=== PATIENT | female | born 1980 | race Caucasian/White ===

== ENCOUNTER 2021-01-11 11:25 | Outpatient (CLI) | payer OTHER, SELFPAY ==
--- NOTE | ~2021-01-11 | MMUS_ITS ---
EXAMINATION: MM diag nico implant BI w feliz, US breast BI limited HISTORY: Palpable lump in the upper outer quadrant of the left breast TECHNIQUE: Craniocaudal, mediolateral, and mediolateral oblique 3-D tomosynthesis images with implant displacement of the breasts were performed and synthetic 2-D images were generated. Craniocaudal, m ediolateral oblique, and mediolateral views of the breasts without implant displacement were obtained using full field digital mammography. CAD analysis was submitted and interpreted. High resolution [facility] bilateral breast ultrasound was performed. COMPARISON: None, baseline BREAST PARENCHYMAL COMPOSITION: The breasts are extremely dense, which lowers the sensitivity of mamm ography. FINDINGS: MAMMOGRAPHIC FINDINGS: Left breast: No mammographic correlate is identified for the reported palpable abnormality of the lef t breast. There are several obscured equal density masses in the upper outer quadrant of the left [place] ast. Right breast: There is a 12 mm oval, obscured, low density mass in the middle third of the inner [address] st at the 3:00 location 4 cm from the nipple on the implant displaced craniocaudal view. ULTRASOUND: Left breast: There are multiple simple cysts of the left breast, the largest of which measures 3.2 cm at the 12:00 location 2 cm from the nipple. There are simple cysts at the 10:00 location 5 cm from t he nipple measuring up to 1 cm in the area of palpable concern. Right breast: There is a 0.9 x 0.5 cm oval, circumscribed, parallel, complex cystic and solid mass wi th posterior acoustic enhancement and no internal vascularity at the 3:00 location in the right breas t IMPRESSION: 1. Multiple simple cysts of the left breast including cysts in the area of palpable concern. Probably benign right breast mass. 2. Recommend 6 month follow-up right diagnostic mammogram and ultrasound BI-RADS category 3, probably benign findings. Reviewed, dictated and finalized at location A. [employer] IMPRESSION: 1. Multiple simple cysts of the left breast including cysts in the area of palp able concern. Probably benign right breast mass. 2. Recommend 6 month follow-up right diagnostic mammogram and ultrasound BI-RADS category 3, probably benign findings.
== END 2021-01-11 11:26 | disposition home or self-care (01) ==
PROVIDERS: PCP Family Medicine; Visit Provider Obstetrics & Gynecology
DX: N63.20 Unspecified lump in the left breast, unspecified quadrant (principal); R92.8 Other abnormal and inconclusive findings on diagnostic imaging of breast
CPT/HCPCS: 76642; 77062; 77066; G0279

== ENCOUNTER → 2021-07-06 04:35 | Outpatient (CLI) | payer OTHER, SELFPAY ==
[2021-07-07 01:36] LABS: SARS-CoV-2 RNA PCR Negative
== END ==
PROVIDERS: PCP Family Medicine; Visit Provider Obstetrics & Gynecology
DX: Z01.812 Encounter for preprocedural laboratory examination (principal); Z20.822 Contact with and (suspected) exposure to COVID-19
CPT/HCPCS: C9803; U0003; U0005

== ENCOUNTER 2021-07-10 01:20 | Day surgery (SDC) | payer OTHER, SELFPAY ==
[2021-07-08 10:36] VITALS: BMI 25.0
--- NOTE | 2021-07-09 13:09 | WPDANESEPPF ---
Anes - Initial Pre Proc Eval Procedure: Operation Date: 07/10/21 07:30 Proposed Procedures p Hysteroscopy with Aleyda Endometrial Ablation - Sujatha Elizabeth MD Date/Time: 07/09/21 13:09 Surgeon: Sujatha Elizabeth MD Pre Op Diagnosis: menorrhagia Patient Data Age: 41 Gender: F Height: 1.68 m Weight: 70.35 kg Allergies Allergy/AdvReac Type Severity Reaction Status Date / Time ciprofloxacin [From Cipro] Allergy Unknown Nausea Verified 07/10/21 06:10 metronidazole [From Flagyl] Allergy Unknown Nausea Verified 07/10/21 06:10 phenobarbital Allergy Unknown Unknown Verified 07/10/21 06:10 Home Medications Medication Instructions Recorded Confirmed Type alprazolam 0.5 mg PO PRN PRN 07/08/21 07/10/21 History apple cider vinegar 300 mg PO DAILY 07/08/21 07/10/21 History ascorbic acid (vitamin C) [Vitamin 500 mg PO DAILY 07/08/21 07/10/21 History C] bupropion HCl 150 mg PO QAM 07/08/21 07/10/21 History cholecalciferol (vitamin D3) 125 mcg PO DAILY 07/08/21 07/10/21 History diltiazem HCl 360 mg PO HS 07/08/21 07/10/21 History lactobacillus combination no.4 3,000 mmu cells PO DAILY 07/08/21 07/10/21 History [Probiotic] losartan 50 mg PO BID 07/08/21 07/10/21 History magnesium 450 mg PO DAILY 07/08/21 07/10/21 History potassium chloride 10 meq PO DAILY 07/08/21 07/10/21 History vitamin B complex [B Complex] 1 cap PO DAILY 07/08/21 07/10/21 History zinc 50 mg PO DAILY 07/08/21 07/10/21 History Patient hx anesthesia problems: none Family hx anesthesia problems: none PMFSH Past Medical History Medical History (Updated 07/09/21 @ 13:10 by Roberto Carlos Loo DO) Anxiety Depression Hypertension Surgical History Surgical History (Updated 07/09/21 @ 13:10 by Roberto Carlos Loo DO) History of History of spinal fusion History of tonsillectomy Family History Family History (Updated 10/21/10 @ 12:06 by DOCTOR UNKNOWN) Other Diabetes mellitus Family history of lung cancer Family history of malignant neoplasm of male breast Hypertension Social History Social History Smoking status: Never smoker Alcohol intake: current Drinks per week: 1 Substance use type: marijuana Other substance usage details: PRN/PAIN Last use: 07/07/21 Living arrangements: with family Spiritual care concerns: No Anes - Eval Final PreProcedure Day of Procedure 07/09/21 13:09 Patient weight: normal Heart: regular rate and rhythm Lungs: clear to auscultation and normal air movement Airway: Mallampati scale class II Neurological: alert and oriented Last oral intake: >/= 8 hours ASA classification: II Emergent: no Anesthetic plan: proceed Anesthesia type and monitoring: general GIVS and standard monitoring Informed Consent: The patient's anesthetic plan and its attendant risks and benefits were discussed with the patient/family/POA. Questions were solicited and answers provided to the satisfaction of the patient/family/POA.
[2021-07-10 06:17] VITALS: BP 124/78; PULSE 97; RESP 18; TEMP 36.3; O2SAT 100
[2021-07-10] MEDS: LACTATED RINGERS 1,000 ML 30 ML IV CONT (06:25)
[2021-07-10] MEDS: ACETAMINOPHEN 500 MG TABLET 1000 MG PO (06:28)
--- NOTE | 2021-07-10 07:16 | WPDHPUPDATE1 ---
History and Physical Update Update Date/Time: 07/10/21 07:16 History and Physical has been reviewed, including an updated exam of the patient. There are NO changes in the patient's condition. Risks, benefits, and alternatives have been discussed and questions answered. Patient agrees to proceed with procedure.
--- NOTE | 2021-07-10 07:18 | WPDHPUPDATE1 ---
History and Physical Update Update Date/Time: 07/10/21 07:18 History and Physical has been reviewed, including an updated exam of the patient. There are NO changes in the patient's condition. Risks, benefits, and alternatives have been discussed and questions answered. Patient agrees to proceed with procedure.
[2021-07-10] MEDS: KETOROLAC 30 MG/ML VIAL (*BKC) IV PUSH (08:00)
[2021-07-10 08:07] VITALS: BP 108/54; PULSE 87; O2SAT 100
--- NOTE | 2021-07-10 08:21 | W.PM.PROC2 ---
Procedure Note - Detailed Date of Procedure 07/10/21 Pre-op Diagnosis menorrhagia Post-op Diagnosis same Procedure Performed endometrial ablation with hysteroscopy d&c Surgeon Sujatha Elizabeth MD Anesthesia MAC Indications Severe menorrhagia Findings Normal vulva vagina and cervix. Normal endometrium. Description of Procedure The patient was taken to the operating room. She was prepped and draped in the dorsal lithotomy position after induction of mac anesthesia. A speculum was placed in the vagina. Cervix grasped with a tenaculum. The cervix was dilated to about 1 cm. The hysteroscope was inserted. The above findings were noted. Endometrial curettage was performed with a medium-size curette. All surfaces of the endometrium were affected by the curettage. The specimens were collected and sent to pathology. Measurements were taken of the uterus and cervix. The uterine length was then entered into the hand piece of the Aleyda device. The device was inserted into the intrauterine cavity. The array of the device was expanded. The balloon cuff was inflated. A good seal was achieved. The energy and safety cycles were initiated and completed. The array was collapsed and the instrument was withdrawn after deflating the balloon cuff. Hysteroscope was reinserted. Above findings were noted. The hysteroscope was removed. The patient tolerated the procedure well. The speculum and tenaculum were removed. She was taken to recovery in stable condition. Sponge lap and needle counts were correct x2. Estimated Blood Loss 15 Pathology yes Complications No immediate complications Condition stable Disposition same day
[2021-07-10] MEDS: oxyCODONE HCL (*CRX) 5 MG TAB IR PO (08:24)
[2021-07-10 08:35] VITALS: BP 113/68; PULSE 79; O2SAT 98
[2021-07-10 09:00] VITALS: BP 117/78; PULSE 71
== END 2021-07-10 09:10 | disposition home or self-care (01) ==
PROVIDERS: PCP Family Medicine; Visit Provider Obstetrics & Gynecology
PROC: 0U5B8ZZ Destruction of Endometrium, Via Natural or Artificial Opening Endoscopic (ICD-10-PCS; CPT 58563; principal; 2021-07-10 07:30)
DX: N92.0 Excessive and frequent menstruation with regular cycle (principal); I10 Essential (primary) hypertension; F41.9 Anxiety disorder, unspecified; F32.9 Major depressive disorder, single episode, unspecified; Z79.899 Other long term (current) drug therapy
CPT/HCPCS: 58353; 88305; A9270; J1100; J1885; J2250; J2405; J2704; J3010; J7030; J7120